=== PATIENT | male | born 1975 | race African-American/Black ===

== ENCOUNTER 2021-08-14 20:04 | Emergency (ER) | payer SELFPAY ==
[~2021-08-14] VITALS: Ht 175.3 cm; Wt 97.0 kg
[2021-08-14] MEDS ORDERED: HYDROCODONE/ACETAMINOPHEN 5/325MG TABLET PO ONE (22:00)
[2021-08-14] MEDS ORDERED: CEPH500C2 MT (22:11)
[2021-08-14] MEDS ORDERED: HYDR-4001 MT (22:11)
[2021-08-14] MEDS ORDERED: IBUP-2029 MT (22:11)
[2021-08-14] MEDS ORDERED: CEPHALEXIN 250MG CAPSULE PO ONE (22:30)
[2021-08-14] MEDS ORDERED: IBUPROFEN 800MG TABLET PO ONE (22:30)
[2021-08-14 23:10] VITALS: BP 8/44
== END 2021-08-14 23:10 | disposition home or self-care (01) ==
LOC: ER 20:04
DX: S62.396A Other fracture of fifth metacarpal bone, right hand, initial encounter for closed fracture (principal); L03.113 Cellulitis of right upper limb; W26.8XXA Contact with other sharp object(s), not elsewhere classified, initial encounter; Y93.89 Activity, other specified; Y92.89 Other specified places as the place of occurrence of the external cause; Y99.8 Other external cause status; Z79.899 Other long term (current) drug therapy
CPT/HCPCS: 73130; 99284

== ENCOUNTER 2021-08-20 05:54 | Emergency (ER) | payer SELFPAY ==
[~2021-08-20] VITALS: Ht 175.3 cm; Wt 96.0 kg
[~2021-08-20 05:54] MED LIST: CEPH500C2 MT; HYDR-4001 MT; IBUP-2029 MT
[2021-08-20] MEDS ORDERED: KETOROLAC 30MG/ML VIAL IV STA (06:26)
[2021-08-20] MEDS ORDERED: SODIUM CHLORIDE 0.9% 1,000 ML IV ONE (06:30)
[2021-08-20 06:51] LABS: BASOPHILS % 0.7 % (0.0-2.0); EOSINOPHILS % 2.9 % (0.0-5.0); HEMATOCRIT. 36.5 % (42.0-52.0); HEMOGLOBIN. 12.1 g/dL (14.0-18.0); LYMPHOCYTES % 20.9 % (20.0-50.0); MEAN CORPUSCULAR VOLUME 84.4 fL (80.0-94.0); MEAN PLATELET VOLUME 7.2 fl (7.4-10.4); MONOCYTES % 12.1 % (2.0-8.0); NEUTROPHILS % 63.4 % (40.0-76.0); PLATELET 316 x1000/uL (130-400); RED BLOOD CELL COUNT 4.32 mill/uL (4.7-6.1); RED CELL DISTRIBUTION WIDTH 14.9 % (11.6-14.6)
[2021-08-20] MEDS ORDERED: DIATR MEGLU/DIATRIZOATE SOLN 30ML ONE (06:58)
[2021-08-20] MEDS ORDERED: IOHEXOL-300 100 ML BOTTLE ONE (06:59)
[2021-08-20] MEDS ORDERED: KETOROLAC 60MG/2ML VIAL IM ONE (07:00)
[2021-08-20 07:02] LABS: CHLORIDE 103 mEq/L (98-107)
[2021-08-20 07:15] LABS: PROTHROMBIN TIME 10.8 sec (9.6-11.0)
[2021-08-20 08:08] VITALS: BP 115/63
[2021-08-20 08:24] LABS: CLARITY URINE CLEAR (CLEAR); COLOR URINE YELLOW (YELLOW); KETONES URINE NEGATIVE (NEGATIVE); LEUKOCYTE ESTERASE URINE NEGATIVE (NEGATIVE); NITRITE URINE NEGATIVE (NEGATIVE); OCCULT BLOOD URINE NEGATIVE (NEGATIVE); PROTEIN URINE NEGATIVE (NEGATIVE); SPECIFIC GRAVITY URINE 1.018 (1.005-1.030)
[2021-08-20 08:32] LABS: *BARBITURATES SCREEN URINE NEGATIVE (NEGATIVE)
[2021-08-20 08:33] LABS: *AMPHETAMINES SCREEN URINE NEGATIVE (NEGATIVE); *BENZODIAZEPINES SCREEN URINE NEGATIVE (NEGATIVE); *COCAINE SCREEN URINE NEGATIVE (NEGATIVE); CANNABINOID URINE SCREEN NEGATIVE (NEGATIVE); METHADONE URINE SCREEN NEGATIVE (NEGATIVE); OPIATES URINE SCREEN NEGATIVE (NEGATIVE); PHENCYCLIDINE URINE SCREEN NEGATIVE (NEGATIVE)
== END 2021-08-20 08:49 | disposition left against medical advice (07) ==
LOC: ER 05:54
DX: R10.9 Unspecified abdominal pain (principal)
CPT/HCPCS: 36415; 80053; 80305; 81003; 83605; 83690; 85025; 85610; 96372; 99283; J1885; J7030; Q9963; Q9967